=== PATIENT | male | born 1975 | race Caucasian/White ===

== ENCOUNTER 2020-03-04 20:31 | Emergency (ER) | payer SELFPAY ==
[~2020-03-04] VITALS: Ht 180.3 cm; Wt 108.9 kg
[~2020-03-04 20:31] MED LIST: AMITRIPTYLINE100 MG PO; HALDOL5 MG/1 ML PO
[2020-03-04] MEDS ORDERED: BUSPIRONE HCL5 MG PO (20:45)
[2020-03-04] MEDS ORDERED: DICLOFENAC SODI75 MG PO (20:59)
== END 2020-03-04 21:18 | disposition home or self-care (01) ==
LOC: ED 20:31
DX: M54.5 Low back pain (principal); F31.9 Bipolar disorder, unspecified; F43.10 Post-traumatic stress disorder, unspecified; F17.200 Nicotine dependence, unspecified, uncomplicated; Z88.5 Allergy status to narcotic agent; Z79.899 Other long term (current) drug therapy
CPT/HCPCS: 99283

== ENCOUNTER 2020-03-20 22:06 | Emergency (ER) | payer SELFPAY ==
[~2020-03-20] VITALS: Ht 180.3 cm; Wt 127.0 kg
[~2020-03-20 22:06] MED LIST changes: +BUSPIRONE HCL5 MG PO; +DICLOFENAC SODI75 MG PO
--- OUTSIDE RECORDS SUMMARY | 2020-03-20 22:08 | XMS ---
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 Ruiz has no Care Guidelines for this patient. [place] VISIT COUNT (12 MO.) [address] [facility] TOTAL 2 NOTE: Visits indicate total known visits. [place] [place]12 [place] 03/20/2020 22:07 [facility] [place] TYPE: Emergency COMPLAINT: - SKIN PROBLEM 03/04/2020 20:[address] 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
[2020-03-20] MEDS ORDERED: BACTRIM DS TAB1 EACH PO (22:40)
== END 2020-03-20 23:07 | disposition home or self-care (01) ==
LOC: ED 22:06
DX: L02.415 Cutaneous abscess of right lower limb (principal); F31.9 Bipolar disorder, unspecified; F43.10 Post-traumatic stress disorder, unspecified; F17.200 Nicotine dependence, unspecified, uncomplicated; Z88.5 Allergy status to narcotic agent; Z79.899 Other long term (current) drug therapy
CPT/HCPCS: 99283

== ENCOUNTER 2022-10-07 07:44 | Day surgery (SDC) | payer MEDICARE, OTHER ==
[~2022-10-07] VITALS: Ht 180.3 cm; Wt 138.0 kg
[~2022-10-07 07:44] MED LIST changes: +ANTI-DIARR262 MG/15 PO; +BACTRIM DS TAB1 EACH PO; +BUPRENORPHIN-N1 EACH SL; +GLUCOSAMINE HC500 MG PO; +K-TAB ER20 MEQ PO; +LAMICTAL100 MG PO; +MELATONIN5 MG/15 ML PO; +METRONIDAZOLE70 GM VAGINAL; +MULTI VITAMIN1 EACH PO; +OMEPRAZOLE20 MG PO
[2022-10-07 08:08] VITALS: BP 146/92
--- NOTE | 2022-10-07 10:41 | NUR ---
PT ALERT, ORIENTED AND SUPPORTED BY HIS SON. STAFF WAITING TO START PREP, GAVE BLESSING. PTS' SON WILL WAIT FOR DC. WILL FOLLOW
--- NOTE | 2022-10-07 10:53 | NUR ---
10/07/22 1053 Franchesca Posada 1030 PT ARRIVED IN PACU WIDE AWAKE ASKING TO GO HOME. REMINDED PT PROCEDURE JUST FINISHED. 1035 SNORING. 1050 SNORING. REU.
[2022-10-07 11:05] VITALS: BP 132/70
--- NOTE | 2022-10-07 13:50 | OR ---
[facility] [address] [place], [place] [address] Signed DATE OF OPERATION: 10/07/2022 SURGEON: Mateus Preciado MD PREOPERATIVE DIAGNOSES: 1. Early satiety. 2. Anorexia. 3. Nausea and vomiting. 4. Weight loss of 25 pounds over several months. 5. Elevated lipase levels. POSTOPERATIVE DIAGNOSES: 1. Mild diffuse gastritis. 2. Small hiatal hernia. PROCEDURE: EGD with CLOtest and biopsies of the antrum. ESTIMATED BLOOD LOSS: None. INDICATIONS: Fran is a 46-year-old gentleman, who tells me he has significant bipolar disorder. He is now on SSI. 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 Some of that has resulted in posttraumatic stress disorder. More recently his lipase levels have been elevated. He had a negative CT scan of the abdomen and pelvis, except for some fatty liver. The pancreas was fine back in May 2022. He has also had early satiety with anorexia and nausea and vomiting. He said he has lost 25 pounds over several months. His primary care provider had asked him to come see me with respect to the above. I gave him a pamphlet on upper endoscopy and we looked at that together. He understands the nature of the test. He has had some type of colonoscopy in the past and he thinks he had transanal excision of a tumor. Apparently, he told them to resect it, he never went back afterwards. He understands there is risk to endoscopy including but not limited to gas bloating, crampy abdominal pain, bleeding, perforation requiring surgery, and missed diagnosis. We also reviewed the need for IV conscious sedation. He told me he had discontinued the Suboxone. He thought Versed and fentanyl would be fine. He had expressed understanding and wished to proceed. PROCEDURE NOTE: Fran was taken into our endoscopy suite and placed in the supine semi-recumbent Electronically Signed By: MATEUS PRECIADO MD 10/07/22 1350 PATIENT NAME: FRAN DOMINGUEZ OPERATIVE REPORT DATE OF : 75 REPORT #: [id number] PHYSICIAN: MATEUS PRECIADO MD PCP: YAMILKA PETTY MD REPORT IS CONFIDENTIAL AND NOT TO BE RELEASED WITHOUT AUTHORIZATION [facility] [address] [place], [place] [address] Signed position. He was given 12 mg of Versed and 100 mcg of fentanyl to cover the case. The posterior oropharynx had been anesthetized with Hurricaine spray. A bite block had been utilized for the case. The adult gastroscope had been introduced. Unfortunately, he was awake, trying to talk and moving around and grabbing at our scope throughout the procedure. We finally made it down into the duodenum. The duodenum and pyloric channel were unremarkable. He did have some mild punctate hemorrhagic gastritis in his stomach. No ulcers in the stomach. We took a biopsy of the antrum for CLOtest as well as pathologic review. Upon retroflexion of the scope, we can see he has a small hiatal hernia. We withdrew the scope up through the area of the GE junction, which was compliant without stricture. We could see the small hiatal hernia for above as well. He has a little bit of irritation around the Z-line. There was no Herrera's mucosa. There was no distal esophagitis. The middle and upper esophagus were unremarkable. Unfortunately, we could not take measurements and so forth because he was moving around so much. Consequently, he really needs monitored anesthesia care with propofol infusion in the future. After this, the gas had been suctioned out and the gastroscope removed. RECOMMENDATIONS: I will see Fran back in my office in 7 to 14 days to review his results. Mateus Preciado MD ALB/MODL /[id number] cc: MD Mateus Parham MD Copies: YAMILKA PETTY MD, ANDREW L MD ~ Electronically Signed By: MATEUS PRECIADO MD 10/07/22 1350 PATIENT NAME: FRAN DOMINGUEZ OPERATIVE REPORT DATE OF : 75 REPORT #: [id number] PHYSICIAN: MATEUS PRECIADO MD PCP: YAMILKA PETTY MD REPORT IS CONFIDENTIAL AND NOT TO BE RELEASED WITHOUT AUTHORIZATION
--- NOTE | 2022-10-09 12:30 | PATH ---
[facility] [address] [facility] [facility] [place], [place] [address] Signed SPECIMEN(S): A ANTRUM/PYLORUS BIOPSY SPECIMEN SOURCE: A. ANTRUM/PYLORUS BIOPSY CLINICAL HISTORY: Heartburn, reflux, weight loss. Dx: Hiatal hernia, mild gastritis. FINAL PATHOLOGIC DIAGNOSIS: Antrum / pylorus biopsy: - Benign gastric antral-type mucosa with mild chronic gastritis. - A Helicobacter pylori immunostain is negative for organisms. JVR:[facility]:C2NR MICROSCOPIC EXAMINATION: Histologic sections of all submitted blocks are examined by light microscopy. These findings, together with the gross examination, support the pathologic diagnosis. A Helicobacter pylori immunostain is performed with appropriate positive and negative controls on block (A1) and is negative for organisms. A CK AE1/3 immunostain is performed with appropriate controls on block (A1) and is negative for occult carcinoma. JVR:[facility] GROSS DESCRIPTION: The specimen, labeled and designated "Quan, antrum/pylorus biopsy," is received in formalin and consists of one benson soft tissue fragment, 0.4 cm. Entirely submitted in (A1). VB (under the direct supervision of a pathologist) The Gross Description was prepared using a voice recognition system. The report was reviewed for accuracy; however, sound-alike word errors, addition and/or deletions may occur. If there is any question about this report, please contact Client Services. ADDITIONAL NOTES: Immunohistochemical and/or in situ hybridization studies were performed on this case with the appropriate positive controls that react as expected. This test was developed and its performance characteristics determined by [facility]. It has not been cleared or approved by the U.S. Food and Drug Administration. The FDA has determined that such clearance or approval is not PATIENT NAME: FRAN DOMINGUEZ PATHOLOGY DATE OF : 75 REPORT #: [id number] PHYSICIAN: JEMAL PATHOLOGY PCP: YAMILKA PETTY MD REPORT IS CONFIDENTIAL AND NOT TO BE RELEASED WITHOUT AUTHORIZATION [facility] [address] [place] [address] Signed necessary. This test is used for clinical purposes. It should not be regarded as investigational or for research. [facility] is certified under the Clinical Laboratory Improvement Amendments of 1988 (CLIA) as qualified to perform high complexity clinical laboratory testing. This assay has not been validated for specimens that have been decalcified. PERFORMING LABORATORY: The technical component was performed by [facility], [address] [place] [id number] (CLIA# [id number]). Professional interpretation was performed by [facility], [address] [place] [id number] (CLIA#: [id number]). Diagnostician: Reggie Berrios MD Pathologist Electronically Signed 10/09/2022 Copies: ~ PATIENT NAME: FRAN DOMINGUEZ PATHOLOGY DATE OF : 75 REPORT #: [id number] PHYSICIAN: JEMAL MASON PCP: YAMILKA PETTY MD REPORT IS CONFIDENTIAL AND NOT TO BE RELEASED WITHOUT AUTHORIZATION
== END 2022-10-07 11:25 | disposition home or self-care (01) ==
LOC: OPS 07:44 → DS 07:44 → OPS 09:00
PROVIDERS: ATTEND Colon & Rectal Surgery
PROC: 0DB68ZX Excision of Stomach, Via Natural or Artificial Opening Endoscopic, Diagnostic (ICD-10-PCS; principal; 2022-10-07 09:00)
DX: K29.50 Unspecified chronic gastritis without bleeding (principal); K44.9 Diaphragmatic hernia without obstruction or gangrene; R63.4 Abnormal weight loss; Z68.41 Body mass index [BMI] 40.0-44.9, adult; K85.90 Acute pancreatitis without necrosis or infection, unspecified; K76.0 Fatty (change of) liver, not elsewhere classified
CPT/HCPCS: 36415; 87077; 88305; 88341; 88342; 99153; G0500; J2250; J3010; J7121

== ENCOUNTER 2023-01-14 10:36 | Emergency (ER) | payer OTHER, MEDICARE ==
[~2023-01-14] VITALS: Ht 180.3 cm; Wt 130.8 kg
--- OUTSIDE RECORDS SUMMARY | ~2023-01-14 | XMS | Continuity of Care Document ---
Demographics + + + | Address | [address] | | | [place] [address] | + + + | Preferred Language | Unknown | + + + | Marital Status | Never | + + + | Presybeterian Affiliation | Unknown | + + + | Race | White | + + + | Ethnic Group | Unknown | + + + Author + + + | Author | [facility] | + + + | Organization | [facility] | + + + | Address | [address] | | | [place] [address] | + + + | Phone | | + + + Care Team Providers + + + + | Care Chemical Applicator Name | Role | Phone | + + + + Unavailable | Unavailable | + + + + Allergies and Intolerances + + + + + + | date | description | facility | reaction | severity | + + + + + + | (no date) | morphine | [facility] | (no reaction) | (no severity) | + + + + + + Encounters No information. Functional Status No information. Immunizations No information. Medications No information. Problems + + + + | date | description | facility | + + + + | 2022-03-20 13:26 | OTHER SPECIFIED JOINT | [facility] | | | DISORDERS, RIGHT KNEE | | + + + + | 2022-03-20 13:26 | CHONDROMALACIA, RIGHT KNEE | [facility] | | | | | + + + + | 2022-03-20 13:26 | BUCKET-HNDL TEAR OF MEDIAL | [facility] | | | MENSC, CRNT INJURY, R | | | | KNEE, INIT | | + + + + | 2022-03-20 13:26 | SPRAIN OF ANTERIOR | [facility] | | | CRUCIATE LIGAMENT OF RIGHT | | | | KNEE | | + + + + | 2022-06-16 07:52 | FATTY (CHANGE OF) LIVER, | [facility] | | | NOT ELSEWHERE CLASSIFIED | | + + + + | 2022-06-16 07:52 | IDIOPATHIC ACUTE | [facility] | | | PANCREATITIS WITHOUT | | | | NECROSIS OR INFECTION | | + + + + | 2022-10-07 07:44 | UNSPECIFIED CHRONIC | [facility] | | | GASTRITIS WITHOUT BLEEDING | | + + + + | 2022-10-07 07:44 | DIAPHRAGMATIC HERNIA | [facility] | | | WITHOUT OBSTRUCTION OR | | | | GANGRE | | + + + + | 2022-10-07 07:44 | FATTY (CHANGE OF) LIVER, | [facility] | | | NOT ELSEWHERE C | | + + + + | 2022-10-07 07:44 | ACUTE PANCREATITIS WITHOUT | [facility] | | | NECROSIS OR I | | + + + + | 2022-10-07 07:44 | NAUSEA WITH VOMITING, | [facility] | | | UNSPECIFIED | | + + + + | 2022-10-07 07:44 | ABNORMAL WEIGHT LOSS | [facility] | + + + + | 2022-10-07 07:44 | EARLY SATIETY | [facility] | + + + + | 2022-10-07 07:44 | BODY MASS INDEX [BMI] | [facility] | | | 40.0-44.9, ADULT | | + + + + Procedures No information. Results/Labs No information. Social History No information. Vital Signs No information."
--- OUTSIDE RECORDS SUMMARY | ~2023-01-14 | XMS | Continuity of Care Document ---
Demographics + + + | Address | [address] | | | [place] [address] | + + + | Preferred Language | Unknown | + + + | Marital Status | Never | + + + | Mandaeism Affiliation | Unknown | + + + | Race | White | + + + | Ethnic Group | Unknown | + + + Author + + + | Author | [facility] | + + + | Organization | [facility] | + + + | Address | [address] | | | [place] [address] | + + + | Phone | | + + + Care Team Providers + + + + | Care [facility] [employer] Name | Role | Phone | + [...]
--- OUTSIDE RECORDS SUMMARY | 2023-01-14 10:40 | XMS ---
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 - 2 Visits in 30 Days CARE PROVIDERS There are no care providers on record at this time. Care Guidelines exist for the following facilities: [facility] ( 09/28/2017 ) Akiko VISIT COUNT (12 MO.) 2 [facility] TOTAL 2 NOTE: Visits indicate total known visits. ED/UCC VISIT TRACKING (12 MO.) 01/14/2023 10:37 [facility] TYPE: Emergency COMPLAINT: - R PINKY FINGER LAC/INJURY 12/26/2022 21:43 [facility] [place] TYPE: Emergency COMPLAINT: - R ARM LAC INPATIENT VISIT TRACKING (12 MO.) No inpatient visits to display in this time frame [email or web address]
[2023-01-14] MEDS ORDERED: MELOXICAM15 MG PO (11:59)
[2023-01-14] MEDS ORDERED: BUPRENORPHINE-1 EACH SL (11:59)
[2023-01-14 12:50] VITALS: BP 121/97
== END 2023-01-14 12:50 | disposition home or self-care (01) ==
LOC: ED 10:36
DX: S61.216A Laceration without foreign body of right little finger without damage to nail, initial encounter (principal); W26.0XXA Contact with knife, initial encounter; F17.200 Nicotine dependence, unspecified, uncomplicated; Z88.5 Allergy status to narcotic agent; Z79.899 Other long term (current) drug therapy

== ENCOUNTER 2024-01-17 22:50 | Emergency (ER) | payer MEDICARE ==
[~2024-01-17] VITALS: Ht 180.3 cm; Wt 134.0 kg
[~2024-01-17 22:50] MED LIST changes: +BENZTROPINE MESY1 MG PO; +BUPRENORPHINE-1 EACH SL; +MELOXICAM15 MG PO
--- OUTSIDE RECORDS SUMMARY | 2024-01-17 22:51 | XMS ---
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 Care Guidelines exist for the following facilities: [facility] ( 05/02/2015 ) Akiko VISIT COUNT (12 MO.) [address] [facility] TOTAL 2 NOTE: Visits indicate total known visits. 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
[2024-01-17] MEDS ORDERED: Buprenorphine/Naloxone 8/2mg 1 EACH HOME.PACK SL ONE (23:15)
[2024-01-17 23:22] VITALS: BP 144/86
== END 2024-01-17 23:24 | disposition home or self-care (01) ==
LOC: ED 22:50
DX: Z76.0 Encounter for issue of repeat prescription (principal); F17.200 Nicotine dependence, unspecified, uncomplicated; Z88.5 Allergy status to narcotic agent; Z79.899 Other long term (current) drug therapy
CPT/HCPCS: A9270

== ENCOUNTER 2024-03-24 09:34 | Emergency (ER) | payer MEDICARE, OTHER ==
[~2024-03-24] VITALS: Ht 180.3 cm; Wt 136.7 kg
[2024-03-24] MEDS ORDERED: MITIGARE0.6 MG PO (10:10)
[2024-03-24] MEDS ORDERED: IBUPROFEN 800 MG TAB PO ONE (10:15)
[2024-03-24 10:25] VITALS: BP 160/96
== END 2024-03-24 10:25 | disposition home or self-care (01) ==
LOC: ED 09:34
DX: M10.9 Gout, unspecified (principal); F43.10 Post-traumatic stress disorder, unspecified; F17.200 Nicotine dependence, unspecified, uncomplicated; Z79.899 Other long term (current) drug therapy; Z88.5 Allergy status to narcotic agent
CPT/HCPCS: 99283; A9270

== ENCOUNTER 2024-07-26 20:24 | Emergency (ER) | payer MEDICARE, OTHER ==
[~2024-07-26] VITALS: Ht 180.3 cm; Wt 118.8 kg
[~2024-07-26 20:24] MED LIST changes: +MITIGARE0.6 MG PO
[2024-07-26] MEDS ORDERED: TESTOSTERO200 MG/1 M IM (20:37)
[2024-07-26] MEDS ORDERED: BUPRENORPHIN-N1 EACH SL (20:37)
[2024-07-26] MEDS ORDERED: diphenhydrAMINE HCL 50 MG/ML VIAL IV ONE (20:45)
[2024-07-26] MEDS ORDERED: FAMOTIDINE 20 MG/ 2 ML VIAL IV ONE (20:45)
[2024-07-26] MEDS ORDERED: methylPREDNISolone SOD SUCC 125 MG/2 ML VIAL IV ONE (20:45)
[2024-07-26] MEDS ORDERED: LACTATED RINGER'S 1,000 ML IV ONE (20:45)
[2024-07-26 20:48] LABS: BASOPHILS 0.3 % (0-2); EOSINOPHILS 0.1 % (0-6); HEMATOCRIT 54.6 % (35.0-50.0); HEMOGLOBIN 18.2 g/dL (12.0-18.0); LYMPHOCYTES 10.2 % (24-44); MCHC 33.4 g/dl (30-36); MCV 98.8 fl (81-99); MONOCYTES 9.4 % (0-12); PLATELET COUNT 362 K/uL (140-440); RBC 5.53 M/ul (4.3-5.7); RDW 14.9 (10.5-15.0)
[2024-07-26 21:07] LABS: ALBUMIN 3.8 g/dL (3.4-5.0); ALBUMIN/GLOBULIN RATIO 0.93 (1.1-2.4); ALCOHOL, MEDICAL <3 ng/dL (<3); ALKALINE PHOSPHATASE 121 U/L (46-116); ALT (SGPT) 58 U/L (14-59); ANION GAP 12.1 (7-21); AST (SGOT) 51 U/L (15-37); BILIRUBIN, TOTAL 2.5 ng/dL (0.2-1.0); BUN/CREATININE RATIO 5.66 (6.0-28.6); CALCIUM 9.5 mg/dL (8.5-10.1); CARBON DIOXIDE 32 mmol/L (21-32); CHLORIDE 100 mmol/L (98-107); CREATININE, SERUM 1.06 mg/dL (0.70-1.30); GLOMERULAR FILTRATION RATE,EST 87 mL/min (>60); POTASSIUM 3.1 mmol/L (3.5-5.1); PROTEIN, TOTAL 7.9 g/dL (6.4-8.2); UREA NITROGEN 6 mg/dL (7-18)
[2024-07-26] MEDS ORDERED: EPIPEN AUTO INJECTOR 0.3 MG/0.3 ML ML IM ONE (21:30)
[2024-07-26] MEDS ORDERED: ASPIRIN 81 MG CHEW PO ONE (21:30)
[2024-07-26] MEDS ORDERED: NITROGLYCERIN 0.4 MG SUBL SL PRN (21:30)
[2024-07-26 21:51] LABS: CORONAVIRUS COVID-19 AG NEGATIVE (NEGATIVE); INFLUENZA A AG NEGATIVE (NEGATIVE); INFLUENZA B AG NEGATIVE (NEGATIVE)
[2024-07-26 21:55] VITALS: BP 145/95
[2024-07-26 21:55] LABS: BILIRUBIN, URINE NEGATIVE (negative); BLOOD/HGB, URINE NEGATIVE (Negative); KETONE, URINE NEGATIVE (Negative); LEUK ESTERASE, URINE NEGATIVE (negative); NITRITE, URINE NEGATIVE (negative)
[2024-07-26 21:57] LABS: EPITHELIAL CELLS, URINE SQUAMOUS 1+ /lpf (0-1+)
[2024-07-26 21:58] LABS: BACTERIA, URINE RARE /hpf (negative); CASTS, URINE NONE SEEN \\lpf; COLLECTION TYPE, URINE CLEAN CATCH; CRYSTALS, URINE NONE SEEN (0-1+); REFLEX CULTURE, URINE No (No)
[2024-07-26 22:10] LABS: AMPHETAMINES, URINE POSITIVE (NEGATIVE); BARBITURATES, URINE NEGATIVE (NEGATIVE); BENZODIAZEPINE, URINE NEGATIVE (NEGATIVE); BUPRENORPHINE, URINE POSITIVE (NEGATIVE); CANNABINOID, URINE NEGATIVE (NEGATIVE); COCAINE, URINE NEGATIVE (NEGATIVE); ECSTASY, URINE NEGATIVE (NEGATIVE); FENTANYL, URINE NEGATIVE (NEGATIVE); METHADONE, URINE NEGATIVE (NEGATIVE); OPIATES, URINE NEGATIVE (NEGATIVE); OXYCODONE, URINE NEGATIVE (NEGATIVE); PHENCYCLIDINE, URINE NEGATIVE (NEGATIVE)
--- NOTE | 2024-07-27 21:15 | EKG ---
[facility] [address] [facility] [place], [place] [address] Signed Sinus tachycardia Otherwise normal ECG No previous ECGs available Confirmed by Honorio Manuel DO ([id number]) on 07/27/2024 9:14:57 PM Electronically Signed By: HONORIO MANUEL DO 07/27/242114 PATIENT NAME: FRAN DOMINGUEZ CAITLIN Electrocardiogram DATE OF : 75 PHYSICIAN: HONORIO MANUEL DO REPORT #: [id number] REPORT IS CONFIDENTIAL AND NOT TO BE RELEASED WITHOUT AUTHORIZATION
== END 2024-07-26 21:48 | disposition left against medical advice (07) ==
LOC: ED 20:24
PROVIDERS: Internal Medicine
DX: T78.40XA Allergy, unspecified, initial encounter (principal); R07.9 Chest pain, unspecified; F14.10 Cocaine abuse, uncomplicated; F15.10 Other stimulant abuse, uncomplicated; M10.9 Gout, unspecified; F17.200 Nicotine dependence, unspecified, uncomplicated; Z88.5 Allergy status to narcotic agent; Z53.29 Procedure and treatment not carried out because of patient's decision for other reasons; Z79.899 Other long term (current) drug therapy; X58.XXXA Exposure to other specified factors, initial encounter
CPT/HCPCS: 36415; 71045; 80053; 80307; 81001; 83735; 83880; 84484; 85025; 85379; 87651; 93005; 93010; 96374; 96375; 99283-25; A9270; G0480; J1200; J2919; J7121

== ENCOUNTER 2024-08-10 10:40 | Emergency (ER) | payer MEDICARE, OTHER ==
[~2024-08-10] VITALS: Ht 180.3 cm; Wt 109.9 kg
[~2024-08-10 10:40] MED LIST changes: +TESTOSTERO200 MG/1 M IM
--- OUTSIDE RECORDS SUMMARY | 2024-08-10 10:47 | XMS ---
PreManage Notification: FRAN DOMINGUEZ Security [place] Guide Events No recent Security Events currently on file CRITERIA MET - [facility] - Visits in 30 Days CARE PROVIDERS YAMILKA PETTY Emergency Medicine Current PHONE: Unknown Care Guidelines exist for the following facilities: [facility] ( 05/02/2015 ) Akiko VISIT COUNT (12 MO.) [address] [place] [address] TOTAL 5 NOTE: Visits indicate total known visits. ED/UCC VISIT TRACKING (12 MO.) 08/10/2024 10:40 [facility] TYPE: Emergency COMPLAINT: - RT FOOT PAIN 07/26/2024 20:25 [facility] TYPE: Emergency COMPLAINT: - THROAT ISSUE DIAGNOSES: - Allergy status to narcotic agent - Allergy, unspecified, initial encounter - Chest pain, unspecified - Cocaine abuse, uncomplicated - Exposure to other specified factors, initial encounter - Gout, unspecified - Nicotine dependence, unspecified, uncomplicated - Other diseases of pharynx - Other senior living (current) drug therapy - Other stimulant abuse, uncomplicated - Procedure and treatment not carried out because of patient's decision for other reasons 03/24/2024 09:34 [facility] TYPE: Emergency COMPLAINT: - FOOT PAIN DIAGNOSES: - Allergy status to narcotic agent - Gout, unspecified - Nicotine dependence, unspecified, uncomplicated - Other senior living (current) drug therapy - Post-traumatic stress disorder, unspecified 01/17/2024 22:50 [facility] TYPE: Emergency COMPLAINT: - PRESCRIPTION REFILL DIAGNOSES: - Allergy status to narcotic agent - Encounter for issue of repeat prescription - Nicotine dependence, unspecified, uncomplicated - Other senior living (current) drug therapy 08/20/2023 17:32 [facility] TYPE: Emergency COMPLAINT: - STROKE DIAGNOSES: - Adverse effect of benzodiazepines, initial encounter - Bipolar disorder, unspecified - 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
[2024-08-10] MEDS ORDERED: PREDNISONE20 MG PO (14:21)
[2024-08-10] MEDS ORDERED: COLCHICINE0.6 M1 PO (14:23)
[2024-08-10] MEDS ORDERED: predniSONE 20 MG TAB PO ONE (14:30)
[2024-08-10 14:35] VITALS: BP 137/89
== END 2024-08-10 14:35 | disposition home or self-care (01) ==
LOC: ED 10:40
DX: M10.9 Gout, unspecified (principal); R73.03 Prediabetes; F17.200 Nicotine dependence, unspecified, uncomplicated; Z88.5 Allergy status to narcotic agent; Z79.899 Other long term (current) drug therapy
CPT/HCPCS: 73610; 73630; 99283; J7512